=== PATIENT | male | born 1945 | race Hispanic/Latino ===

== ENCOUNTER 2018-10-03 13:49 | Emergency (ER) | payer MEDICARE ==
--- NOTE | 2018-10-03 14:05 | Emergency Department Report ---
Chief Complaint: Fall Stated Complaint: INJURED/FELL Time Seen by Provider: 10/03/18 14:00 - HPI History of Present Illness: This is a 73 y.o. M. that presents to ER s/p fall today. Patient states he was in the attic of a home working then came to outside in a chair. Patient can't recall what happened. Take ASA 81 mg po daily. - Exam Vital Signs: Vital Signs 10/03/18 14:00 Temperature 97.6 F Pulse Rate 78 Respiratory 16 Rate Blood Pressure 141/62 O2 Sat by Pulse 93 Oximetry MSE screening note: Focused history and physical exam performed. Due to findings the following was ordered: This initial assessment/diagnostic orders/clinical plan/treatment(s) is/are subject to change based on patient's health status, clinical progression and re- assessment by fellow clinical providers in the ED. Further treatment and workup at subsequent clinical providers discretion. Patient/guardians urged not to elope from the ED as their condition may be serious if not clinically assessed and managed. Initial orders include: 1- Patient sent to Main ED for further evaluation and treatment 2- CT of head and labs ED Disposition for MSE Condition: Stable
[2018-10-03] MEDS ORDERED: XYLOCAINE 2%/EPI 1:100,000 INFILTRATI ONE (14:18)
[2018-10-03] MEDS ORDERED: PERCOCET 5/325 PO ONE (14:20)
--- NOTE | 2018-10-03 14:20 | Emergency Department Report ---
ED General Adult HPI - General Chief complaint: Fall Stated complaint: INJURED/FELL Time Seen by Provider: 10/03/18 14:00 Source: patient, family Mode of arrival: Ambulatory Limitations: Other (the patient thinks that he lost consciousness and does not remember everything.) - History of Present Illness Initial comments: This is a pleasant 73-year-old gentleman who is not known to this provider previously. This past medical history includes diabetes, hypertension, and thyroid disease. He thinks he is up-to-date with tetanus vaccination. The patient was walking down stairs from his attic, and believes that he slipped down 3 steps and fell. He apparently fell onto his face, right upper extremity, and left shoulder. Heart the fall, the patient was not having any pain or any complaints. He thinks he may have blacked out for a second, but he is not certain. He has a chin laceration, intraoral laceration, left-sided shoulder bruise, and right upper extremity bruises and contusions. He has mild aching pain, which increases with palpation and decreases with rest. On primary survey, Airway: Patent and intact Breath sounds: Clear to auscultation bilaterally Circulation: 2+ pulses in the upper and lower extremities bilaterally. Blood pressure 141/62 Disability: GCS of 15, no focal neurologic deficits Exposure: Left-sided shoulder abrasion, right upper extremity skin avulsions and abrasion, and 3-4 cm inferior chin laceration. Also has a 1-2 cm intraoral laceration, inferiorly. Secondary survey: Lacerations as noted. Skin abrasions as noted. No other obvious splinter penetrating injuries. -: Sudden Location: head, face, mouth, left (left shoulder) Radiation: non-radiation Quality: aching Consistency: intermittent Improves with: rest Worsens with: movement - Related Data Previous Rx's Medication Instructions Recorded Last Taken Type Acetaminophen [Non-Aspirin Extra 500 mg PO Q6HR PRN #30 tablet 10/03/18 Unknown Rx Strength] Chlorhexidine Mouthwash [Peridex] 15 ml MM BID #1 bottle 10/03/18 Unknown Rx Clindamycin [Clindamycin CAP] 150 mg PO Q8HR #21 capsule 10/03/18 Unknown Rx Ibuprofen [Motrin] 600 mg PO Q8H PRN #30 tablet 10/03/18 Unknown Rx oxyCODONE [Roxicodone] 5 mg PO Q6HR PRN #15 tablet 10/03/18 Unknown Rx Allergies Allergy/AdvReac Type Severity Reaction Status Date / Time Penicillins Allergy Rash Verified 10/03/18 13:52 ED Review of Systems ROS: Stated complaint: INJURED/FELL Other details as noted in HPI Constitutional: denies: fever, malaise Eyes: denies: vision change ENT: dental pain, other (intraoral laceration) Respiratory: denies: cough Cardiovascular: denies: chest pain Gastrointestinal: denies: abdominal pain Musculoskeletal: arthralgia, myalgia. denies: back pain Skin: rash Neurological: denies: weakness, numbness, paresthesias, abnormal gait, vertigo Psychiatric: denies: anxiety ED Past Medical Hx - Past Medical History Hx Hypertension: Yes Hx Diabetes: Yes Additional medical history: thyroid - Surgical History Additional Surgical History: knee - Social History Smoking Status: Never Smoker Substance Use Type: None - Medications Home Medications: Home Medications Medication Instructions Recorded Confirmed Last Taken Type Acetaminophen [Non-Aspirin Extra 500 mg PO Q6HR PRN #30 tablet 10/03/18 Unknown Rx Strength] Chlorhexidine Mouthwash [Peridex] 15 ml MM BID #1 bottle 10/03/18 Unknown Rx Clindamycin [Clindamycin CAP] 150 mg PO Q8HR #21 capsule 10/03/18 Unknown Rx Ibuprofen [Motrin] 600 mg PO Q8H PRN #30 tablet 10/03/18 Unknown Rx oxyCODONE [Roxicodone] 5 mg PO Q6HR PRN #15 tablet 10/03/18 Unknown Rx ED Physical Exam - General Limitations: No Limitations General appearance: alert, in no apparent distress - Head Head exam: Present: atraumatic, normocephalic - Eye Eye exam: Present: normal appearance, PERRL, EOMI, other (visual acuity intact to finger counting, color perception, reading at a close distance). Absent: nystagmus - ENT ENT exam: Present: mucous membranes moist, TM's normal bilaterally, normal external ear exam, other (there is no mastoid tenderness. There is no hemotympanum. There is no nasal septal hematoma). Absent: normal orophraynx (on the inferior midline aspect of the lower lip, there is a 1-2 cm laceration noted, with no foreign bodies. There is no dental tenderness. The patient has poor dentition. There is no stridor, trismus or malocclusion) - Neck Neck exam: Present: normal inspection, full ROM. Absent: tenderness, meningismus - Respiratory Respiratory exam: Present: normal lung sounds bilaterally. Absent: respiratory distress - Cardiovascular Cardiovascular Exam: Present: regular rate, normal rhythm, normal heart sounds. Absent: bradycardia, tachycardia, irregular rhythm, systolic murmur, diastolic murmur, rubs, gallop - GI/Abdominal GI/Abdominal exam: Present: soft. Absent: distended, tenderness, guarding, rebound, rigid, pulsatile mass - Rectal Rectal exam: Present: deferred - Extremities Exam Extremities exam: Present: full ROM, other (2+ pulses noted in the bilateral upper, lower extremities. Compartments soft. No long bony tenderness. The pelvis is stable.). Absent: normal inspection (there is a left proximal shoulder ecchymosis. On the right upper extremity, forearm distally, there is an ecchymosis, with skin avulsions. There is no snuffbox tenderness. There is no long bony tenderness. Muscular compartments are soft.), tenderness, pedal edema, joint swelling, calf tenderness - Back Exam Back exam: Present: normal inspection, full ROM. Absent: tenderness, CVA tenderness (R), CVA tenderness (L), paraspinal tenderness, vertebral tenderness - Neurological Exam Neurological exam: Present: alert, oriented X3, other (Extraocular movements intact. Tongue midline. No facial droop. Facial sensation intact to light touch in the V1, V2, V3 distribution bilaterally. 5 and 5 strength in 4 extremities.. Sensation is intact to light touch in 4 extremities.). Absent: motor sensory deficit - Psychiatric Psychiatric exam: Present: normal affect, normal mood - Skin Skin exam: Present: warm, abrasion, ecchymosis ED Course Vital Signs 10/03/18 10/03/18 14:00 18:03 Temperature 97.6 F 98.2 F Pulse Rate 78 60 Respiratory 16 16 Rate Blood Pressure 141/62 Blood Pressure 136/38 [Left] O2 Sat by Pulse 93 100 Oximetry - Reevaluation(s) Reevaluation #1: 10/03/18 15:38 Differential diagnosis, including not limited to, intracranial injury, facial bone injury, soft tissue injury, facial laceration, inner lip laceration Assessment and plan: 73-year-old gentleman status post mechanical fall, question concussion, obvious evidence of supraclavicular injury. There is no midline cervical spine tenderness. We will obtain CT scan of the brain, facial bones. Given her advanced age and mechanism, we will obtain CT scan of the cervical spine. He will be given pain medication. Doubt extremity bony injury, but we will obtain left shoulder x-ray, chest x-ray, and right upper extremity x-ray. We will repair his lacerations. We will reassess after his data points have resulted. Reevaluation #2: 10/03/18 18:53 CT scan of the brain, facial bones negative for acute fracture, dislocation. Cervical spine CT is pending at this time. X-ray of the chest, left shoulder, right upper extremity, forearm, hand negative for acute disease. The neck laceration was irrigated quite thoroughly with sterile saline after adequate pressure. It was explored under bloodless field, and no foreign body was noted. Interrupted absorbable sutures were placed, and then interrupted monofilament nonabsorbable superficial sutures were placed, with good cosmetic approximation. Intraoral laceration was irrigated, then explored, with no obvious foreign body noted. It was loosely approximated with absorbable sutures. CT scan interpretation is reviewed and appreciated regarding questionably retained foreign body. I do not see a retained foreign body under my direct examination or on direct visual inspection. Patient will be started empirically on chlorhexidine, antibiotic prophylaxis, he will be given pain medication, and he will need to follow-up with outpatient plastic surgery, or oral maxillofacial surgery will repeat evaluation. Discussed this with patient and family, who verbalized understanding. The patient is counseled to expect to be sore over the next couple days. Reevaluation #3: 10/03/18 19:02 CT scan of the cervical spine is negative for acute disease. Reevaluation #4: 10/03/18 19:07 Extensively discussed possibility of retained foreign body with patient and significant other. Patient thinks that they are his teeth, but he is not certain. He reports he is reliable to follow-up with his outpatient plastic surgeon, and or oral surgeon. - Laceration /Wound Repair Anterior Medial Neck Wound Location: neck Wound Length (cm): 4 Wound's Depth, Shape: into muscle, irregular, contused tissue Wound Explored: clean Irrigated w/ Saline (ccs): 500 Betadine Prep?: Yes Anesthesia: Lidocaine w/ Epi Volume Anesthetic (ccs): 5 Wound Debrided: minimal Wound Repaired With: sutures Suture Size/Type: 3:0 (4 interrupted monofilament) Number of Sutures: 4 Layer Closure?: Yes Deep Layer Suture Size/Type: 4:0 (4 interrupted monofilament) Number Deep Layer Sutures: 4 Sterile Dressing Applied?: Yes Lower Anterior Medial Face Wound Location: mouth Wound Length (cm): 3 Wound's Depth, Shape: into muscle, irregular, contused tissue Wound Explored: clean Irrigated w/ Saline (ccs): 200 Betadine Prep?: No Anesthesia: Lidocaine w/ Epi Volume Anesthetic (ccs): 3 Wound Debrided: minimal Deep Layer Suture Size/Type: 4:0 (interrupted, monofilament) Number Deep Layer Sutures: 3 Sterile Dressing Applied?: No ED Medical Decision Making - Lab Data Vital Signs 10/03/18 14:00 Temperature 97.6 F Pulse Rate 78 Respiratory 16 Rate Blood Pressure 141/62 O2 Sat by Pulse 93 Oximetry - Radiology Data Radiology results: report reviewed, image reviewed Brain: There is no evidence of intracranial hemorrhage. No parenchymal hemorrhage is seen. No mass lesions or mass effect is identified. No abnormal extra-axial fluid collections or masses are seen. Ventricles: The ventricles, sulcal pattern and fissures are minimally prominent consistent with atrophy. Bone Windows: No evidence of fracture. Images of the small scalp hematoma right side of the forehead. Paranasal sinuses: Visualized portions are clear.. Mastoid air cells: Clear. IMPRESSION: There is evidence of minimal atrophy. No evidence of intracranial hemorrhage or skull fracture. No acute intracranial abnormalities are identified. Minimal scalp hematoma visualized right side of the forehead. . This document is electronically signed by Vince Wei MD., Oct 03 2018 05:52:44 PM ET Transcribed By: DFN Dictated By: VINCE WEI MD Electronically Authenticated By: VINCE WEI MD Signed Date/Time: 10/03/18 6746 Patient: REAZ SERVIN MR#: [id number] 8 : 1945 Acct:[id number] Age/Sex: 73 / M ADM Date: 10/03/18 Loc: ED Attending Dr: Ordering Physician: OSWALDO SANTOS MD Date of Service: 10/03/18 Procedure(s): CT facial bones wo con Accession Number(s): [id number] cc: OSWALDO SANTOS MD PROCEDURE: CT FACIAL BONES WO CON TECHNIQUE: Spiral imaging of the facial bones was obtained without the use of IV contrast. Computer-generated sagittal and coronal reconstructions were created displayed. HISTORY: fell concussion blunt trauma COMPARISONS: None FINDINGS: No acute fractures are identified. The orbits, the zygomas and zygomatic arches as well as the nasal bone and gonsalez of the paranasal sinuses are intact. The mandible is also intact. There is a small scalp hematoma seen overlying the right side of the forehead. On the sagittal reconstructions are several bubbles of gas seen in the soft tissues anterior to the anterior aspect of the mandible. This may be secondary to laceration. On sagittal reconstruction image 38 series 602 small radiopaque density seen in the soft tissues anterior to the mandible measuring approximately 2 mm. I cannot exclude a small foreign body. Severe diffuse dental disease is present Nodular densities seen for the right maxillary sinus suggesting a polyp or mucous retention cyst. Paranasal sinuses otherwise appear clear. IMPRESSION: No facial fractures are identified. Possible laceration posteriorly as described above. Possible small foreign body soft tissues anterior to the mandible near the midline. Minimal scalp hematoma seen right side of the forehead. Minimal paranasal sinus disease as described. Severe diffuse dental disease present. Multiple large cavities and severe to the erosion visualized.. This document is electronically signed by Vince Wei MD., Oct 03 2018 06:28:36 PM ET Transcribed By: DFN Dictated By: VINCE WEI MD Electronically Authenticated By: VINCE WEI MD Signed Date/Time: 10/03/18 183 cc: OSWALDO SANTOS MD Fluoro Time In Minutes: PROCEDURE: Right hand. TECHNIQUE: 3 portable views. HISTORY: fall abrasion pain trauma COMPARISONS: None. FINDINGS: The bones appear intact without fracture or dislocation. There is osteoarthritis involving the second metacarpal phalangeal joint. There is osteoarthritis involving the first metacarpophalangeal joint. The soft tissues are unremarkable. 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 Otherwise normal study. This document is electronically signed by Oswaldo Juarez MD., Oct 03 2018 05:02:21 PM ET Transcribed By: MRM Dictated By: OSWALDO JUAREZ MD Electronically Authenticated By: OSWALDO JUAREZ MD Signed Date/Time: 10/03/18 1704 Patient: REZA SERVIN MR#: [id number] 8 : 1945 Acct:[id number] Age/Sex: 73 / M ADM Date: 10/03/18 Loc: ED Attending Dr: Ordering Physician: OSWALDO SANTOS MD Date of Service: 10/03/18 Procedure(s): XR forearm RT Accession Number(s): [id number] cc: OSWALDO SANTOS MD Fluoro Time In Minutes: PROCEDURE: Right forearm. TECHNIQUE: 2 views. HISTORY: fall trauma pain COMPARISONS: None. FINDINGS: The bones appear intact without fracture or dislocation. The joint spaces appear normal. The soft tissues are unremarkable. IMPRESSION: Normal study. This document is electronically signed by Oswaldo Juarez MD., Oct 03 2018 05:27:39 PM ET Transcribed By: [facility] Dictated By: OSWALDO JUAREZ MD Electronically Authenticated By: OSWALDO JUAREZ MD Signed Date/Time: 10/03/18 1729 Ordering Physician: OSWALDO SANTOS MD Date of Service: 10/03/18 Procedure(s): XR elbow 3+V RT Accession Number(s): [id number] cc: OSWALDO SANTOS MD Fluoro Time In Minutes: PROCEDURE: Right elbow. TECHNIQUE: 4 views. HISTORY: fall trauma pain COMPARISONS: None. FINDINGS: The bones appear intact without fracture or dislocation. Joint spaces appear normal. The soft tissues are unremarkable. There is no evidence of an elbow effusion. IMPRESSION: Normal study. This document is electronically signed by Oswaldo Juarez MD., Oct 03 2018 05:29:11 PM ET Transcribed By: [facility] Dictated By: OSWALDO JUAREZ MD Electronically Authenticated By: OSWALDO JUAREZ MD Signed Date/Time: 10/03/18 1730 Findings [facility] [address] [place] [address] XRay Report Signed Patient: REZA SERVIN MR#: [id number] 8 : 1945 Acct:[id number] Age/Sex: 73 / M ADM Date: 10/03/18 Loc: ED Attending Dr: Ordering Physician: OSWALDO SANTOS MD Date of Service: 10/03/18 Procedure(s): XR shoulder 2+V LT Accession Number(s): [id number] cc: OSWALDO SANTOS MD Fluoro Time In Minutes: PROCEDURE: Left shoulder. TECHNIQUE: 3 portable views. HISTORY: left shoulder pain COMPARISONS: None. FINDINGS: The bones appear intact without fracture or dislocation. The joint spaces appear normal. The soft tissues are unremarkable. IMPRESSION: No significant abnormality. This document is electronically signed by Oswaldo Juarez MD., Oct 03 2018 04:57:03 PM ET Transcribed By: [facility] Dictated By: OSWALDO JUAREZ MD Electronically Authenticated By: OSWALDO JUAREZ MD Signed Date/Time: 10/03/18 1659 Ordering Physician: OSWALDO SANTOS MD Date of Service: 10/03/18 Procedure(s): XR chest 1V ap Accession Number(s): [id number] cc: OSWALDO SANTOS MD Fluoro Time In Minutes: PROCEDURE: Chest. TECHNIQUE: Portable AP view. HISTORY: Blunt trauma, left shoulder pain. COMPARISONS: None. FINDINGS: The heart and mediastinum appear normal. The lungs are clear and well expanded. There are no pleural effusions. The soft tissues and regional skeleton are unremarkable. IMPRESSION: Negative portable chest. This document is electronically signed by Oswaldo Juarez MD., Oct 03 2018 05:14:18 PM ET Transcribed By: [facility] Dictated By: OSWALDO JUAREZ MD Electronically Authenticated By: OSWALDO JUAREZ MD Signed Date/Time: 10/03/18 1716 Critical care attestation.: If time is entered above; I have spent that time in minutes in the direct care of this critically ill patient, excluding procedure time. ED Disposition Clinical Impression: History of fall, Laceration of neck, Intraoral laceration Disposition: DC-01 TO HOME OR SELFCARE Is pt being admited?: No Does the pt Need Aspirin: No Condition: Stable Additional Instructions: Pain typically gets worse before it gets better after mechanical fall. Rest, avoid heavy lifting, and avoid strenuous physical activities. Take the antibiotics as directed, chlorhexidine mouthwash as directed, and pain medication as needed/directed. Neck sutures should be taken out in 7-10 days. Please follow up with the primary care doctor, urgent care center, or return to the emergency room to have the neck sutures taken out. CT scan of the facial bones suggested small retained foreign bodies in the soft tissue overlying the chin. These foreign bodies were not noted by direct visual inspection by the emergency room physician. This will need to be followed up by either a plastic surgeon, or oral surgeon within the next 7-10 days. Patient may follow-up with his private plastic surgeon, private oral surgeon, or he may follow-up with the following within the next 7-10 days, at his discretion: [facility] [phone] Division of publications designer [facility], [address] [place] [id number] Dr Mckeon is a local plastic surgeon. Please return to the emergency room right away with new pain, worsened pain, migration of pain, projectile vomiting, change in mental status, confusion, inability to tolerate liquid feeds, new, worsening or different symptoms not present on the initial ER evaluation. Prescriptions: Clindamycin [Clindamycin CAP] 150 mg PO Q8HR #21 capsule Ibuprofen [Motrin] 600 mg PO Q8H PRN #30 tablet PRN Reason: Pain Acetaminophen [Non-Aspirin Extra Strength] 500 mg PO Q6HR PRN #30 tablet PRN Reason: Pain , Severe (7-10) Chlorhexidine Mouthwash [Peridex] 15 ml MM BID #1 bottle oxyCODONE [Roxicodone] 5 mg PO Q6HR PRN #15 tablet PRN Reason: Pain Referrals: CRISTIAN MCKEON MD [Staff Physician] - 3-5 Days [facility] [Provider Group] - 3-5 Days
[2018-10-03] MEDS ORDERED: NACL 0.9% IR ONE (15:18)
--- NOTE | 2018-10-03 16:59 | XRay Report ---
PROCEDURE: Left shoulder. TECHNIQUE: 3 portable views. HISTORY: left shoulder pain COMPARISONS: None. FINDINGS: The bones appear intact without fracture or dislocation. The joint spaces appear normal. The soft tis sues are unremarkable. IMPRESSION: No significant abnormality. This document is electronically signed by Oswaldo Arzola MD., Oct 03 2018 04:57:03 PM ET
--- NOTE | 2018-10-03 17:04 | XRay Report ---
PROCEDURE: Right hand. TECHNIQUE: 3 portable views. HISTORY: fall abrasion pain trauma COMPARISONS: None. FINDINGS: The bones appear intact without fracture or dislocation. There is osteoarthritis involving the second metacarpal phalangeal joint. There is osteoarthritis involving the first metacarpophalangeal joint. The soft tissues are unremarkable. 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 Otherwise normal study. This document is electronically signed by Oswaldo Arzola MD., Oct 03 2018 05:02:21 PM ET
--- NOTE | 2018-10-03 17:16 | XRay Report ---
PROCEDURE: Chest. TECHNIQUE: Portable AP view. HISTORY: Blunt trauma, left shoulder pain. COMPARISONS: None. FINDINGS: The heart and mediastinum appear normal. The lungs are clear and well expanded. There are no pleural effusions. The soft tissues and regional skeleton are unremarkable. IMPRESSION: Negative portable chest. This document is electronically signed by Oswaldo Arzola MD., Oct 03 2018 05:14:18 PM ET
--- NOTE | 2018-10-03 17:29 | XRay Report ---
PROCEDURE: Right forearm. TECHNIQUE: 2 views. HISTORY: fall trauma pain COMPARISONS: None. FINDINGS: The bones appear intact without fracture or dislocation. The joint spaces appear normal. The soft tis sues are unremarkable. IMPRESSION: Normal study. This document is electronically signed by Oswaldo Arzola MD., Oct 03 2018 05:27:39 PM ET
--- NOTE | 2018-10-03 17:30 | XRay Report ---
PROCEDURE: Right elbow. TECHNIQUE: 4 views. HISTORY: fall trauma pain COMPARISONS: None. FINDINGS: The bones appear intact without fracture or dislocation. Joint spaces appear normal. The soft tissues are unremarkable. There is no evidence of an elbow effusion. IMPRESSION: Normal study. This document is electronically signed by Oswaldo Arzola MD., Oct 03 2018 05:29:11 PM ET
--- NOTE | 2018-10-03 17:54 | Cat Scan Report ---
PROCEDURE: CT HEAD/BRAIN WO CON TECHNIQUE: Computerized tomography of the head was performed without contrast material. CT DOSE LENGTH PRODUCT: 1609.3 mGycm HISTORY: Loss of consciousness COMPARISONS: None . FINDINGS: Brain: There is no evidence of intracranial hemorrhage. No parenchymal hemorrhage is seen. No mass lesions or mass effect is identified. No abnormal extra-axial fluid collections or masses are seen. Ventricles: The ventricles, sulcal pattern and fissures are minimally prominent consistent with atro phy. Bone Windows: No evidence of fracture. Images of the small scalp hematoma right side of the forehead. Paranasal sinuses: Visualized portions are clear.. Mastoid air cells: Clear. IMPRESSION: There is evidence of minimal atrophy. No evidence of intracranial hemorrhage or skull fracture. No ac debbie intracranial abnormalities are identified. Minimal scalp hematoma visualized right side of the forehead. . This document is electronically signed by Vince Potter MD., Oct 03 2018 05:52:44 PM ET
--- NOTE | 2018-10-03 18:31 | Cat Scan Report ---
PROCEDURE: CT FACIAL BONES WO CON TECHNIQUE: Spiral imaging of the facial bones was obtained without the use of IV contrast. Computer- generated sagittal and coronal reconstructions were created displayed. HISTORY: fell concussion blunt trauma COMPARISONS: None FINDINGS: No acute fractures are identified. The orbits, the zygomas and zygomatic arches as well as the nasal bone and gonsalez of the paranasal sinuses are intact. The mandible is also intact. There is a small sca lp hematoma seen overlying the right side of the forehead. On the sagittal reconstructions are several bubbles of gas seen in the soft tissues anterior to the a nterior aspect of the mandible. This may be secondary to laceration. On sagittal reconstruction image [id number] series 602 small radiopaque density seen in the soft tissues anterior to the mandible measuring a pproximately 2 mm. I cannot exclude a small foreign body. Severe diffuse dental disease is present Nodular densities seen for the right maxillary sinus suggesting a polyp or mucous retention cyst. Par anasal sinuses otherwise appear clear. IMPRESSION: No facial fractures are identified. Possible laceration posteriorly as described above. Possible small foreign body soft tissues anterior to the mandible near the midline. Minimal scalp hematoma seen right side of the forehead. Minimal paranasal sinus disease as described. Severe diffuse dental disease present. Multiple large cavities and severe to the erosion visualized.. This document is electronically signed by Vince Potter MD., Oct 03 2018 06:28:36 PM ET
[2018-10-03] MEDS ORDERED: MORPHINE IM ONE (18:35)
--- NOTE | 2018-10-03 19:01 | Cat Scan Report ---
PROCEDURE: CT CERVICAL SPINE WO CON TECHNIQUE: Computerized tomography of the cervical spine was performed from the skull base to T1 wit hout contrast material. CT DOSE LENGTH PRODUCT: 654.8 mGycm HISTORY: fell concussion blunt trauma COMPARISONS: None . FINDINGS: Unenhanced CT of the cervical spine was performed and data was reformatted in the sagittal and coronal planes. These images demonstrate no fracture or malalignment of the cervical spine. There is endplate remodel ing at C3-C4 C4-C5 and C5-C6 there is a vacuum disc at C5-C6. The prevertebral soft tissues are withi n normal limits. 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 There is COPD. There is bilateral apical pleural-parenchymal scarring. IMPRESSION: No fracture or malalignment of the cervical spine This document is electronically signed by Charlie Redding MD., Oct 03 2018 06:59:40 PM ET
[2018-10-03 19:13] VITALS: BP 131/39
== END 2018-10-03 19:18 | disposition home or self-care (01) ==
LOC: ED 13:49
DX: S11.91XA Laceration without foreign body of unspecified part of neck, initial encounter (principal); S01.512A Laceration without foreign body of oral cavity, initial encounter; S40.212A Abrasion of left shoulder, initial encounter; E11.9 Type 2 diabetes mellitus without complications; I10 Essential (primary) hypertension; E07.9 Disorder of thyroid, unspecified; Z88.0 Allergy status to penicillin; W10.8XXA Fall (on) (from) other stairs and steps, initial encounter; Y93.89 Activity, other specified; Y92.89 Other specified places as the place of occurrence of the external cause; Y99.8 Other external cause status
CPT/HCPCS: 12002; 12013; 70450; 70486; 71045; 72125; 73030; 73080; 73090; 73130; 96372; 99284; J2270